=== PATIENT | female | born 1970 | race Caucasian/White ===

== ENCOUNTER 2017-09-04 07:28 | Emergency (ER) | payer SELFPAY ==
[2017-09-04] MEDS ORDERED: Ibuprofen 800 MG TAB ONE (08:00)
[2017-09-04] MEDS ORDERED: cefTRIAXone\\ROCEPHIN 1 GM VIAL ONE (08:01)
[2017-09-04] MEDS ORDERED: Lidocaine 1% MPF 2 ML VIAL ONE (08:01)
== END 2017-09-04 08:34 | disposition home or self-care (01) ==
LOC: SCSER 07:28
DX: K02.9 Dental caries, unspecified (principal); K12.2 Cellulitis and abscess of mouth; I10 Essential (primary) hypertension; E55.9 Vitamin D deficiency, unspecified; F41.9 Anxiety disorder, unspecified; F90.9 Attention-deficit hyperactivity disorder, unspecified type; F17.210 Nicotine dependence, cigarettes, uncomplicated; M54.9 Dorsalgia, unspecified; G89.29 Other chronic pain; Z79.899 Other long term (current) drug therapy
CPT/HCPCS: 96372; J0696

== ENCOUNTER 2018-05-26 03:07 | Emergency (ER) | payer SELFPAY ==
[2018-05-26 04:14] LABS: #Eosinphils 0.2 thou/uL (0.0-0.7); #Lymphocytes 2.3 thou/uL (1.20-3.40); #Monocytes 0.6 thou/uL (0.11-0.59); #Neutrophils 7.3 thou/uL (1.40-6.50); %Basophils 0.4 % (0.0-1.0); %Eosinophils 1.7 % (0.0-10.0); %Lymphocytes 22.4 % (21.0-51.0); %Monocytes 5.7 % (0.0-10.0); %Neutrophils 69.7 % (42.0-75.0); Hemoglobin 14.1 g/dL (12.0-16.0); Mean Corpuscular HGB CONC 31.9 g/dL (32.0-36.0); Mean Corpuscular Hemoglobin 30.8 pg (27.0-31.0); Mean Corpuscular Volume 96.5 fL (78.0-98.0); Mean Platelet Volume 7.3 fL (7.4-10.4); Platelet Count 290 thou/uL (130-400); RBC Distribution Width 12.3 % (11.5-14.5); Red Blood Cell (RBC) Count 4.57 mill/uL (4.20-5.40); White Blood Cell (WBC) Count 10.4 thou/uL (4.8-10.8)
[2018-05-26 04:34] LABS: ALT (SGPT) 15 U/L (8-55); AST (SGOT) 15 U/L (5-34); Albumin 3.9 g/dL (3.5-5.0); Alkaline Phosphatase 54 U/L (40-150); Anion Gap 15 mmol/L (10-20); BUN (Urea Nitrogen) 15 mg/dL (7.0-18.7); Bilirubin, Total 0.2 mg/dL (0.2-1.2); Calc. Creatinine Clearance 0 mL/min (70-130); Calcium 9.3 mg/dL (7.8-10.44); Carbon Dioxide 26 mmol/L (22-29); Chloride 101 mmol/L (98-107); Estimated GFR-MDRD 83; Globulin 3.2 g/dL (2.4-3.5); Glucose 106 mg/dL (70-105); Lipase 22 U/L (8-78); Protein, Total 7.1 g/dL (6.0-8.3); Sodium 138 mmol/L (136-145)
[2018-05-26] MEDS ORDERED: Metoclopramide HCl 10 MG/2 ML VIAL ONE (05:50)
[2018-05-26] MEDS ORDERED: diphenhydrAMINE 50 MG/ML VIAL ONE (05:50)
[2018-05-26 06:25] LABS: Bilirubin Negative (Negative); Blood, Urine Negative (Negative); Clarity CLEAR (Clear); Glucose, Urine (Dipstick) Negative (Negative); Leukocyte Negative (Negative); Nitrite Negative (Negative); Protein, Urine (Dipstick) Negative (Neg-Trace); Specific Gravity, Urine 1.023 (1.002-1.036); Urobilinogen 0.2 mg/dL (0.2-1.0); pH, Urine 5.5 (5.0-9.0)
--- NOTE | 2018-05-26 08:11 | CT ---
CT HEAD NONCONTRAST: INDICATIONS: Headache. FINDINGS: There is a normal-sized ventricular system. No acute intracranial hemorrhage, mass effect, or midlin e shift. There is a large, partially visualized, rounded density in the right maxillary sinus, likel y a retention cyst. There are additional sites of mucosal thickening and retention cyst formation on the imaged paranasal sinuses. IMPRESSION: 1. No acute intracranial hemorrhage or mass effect. 2. Prominent paranasal sinus inflammatory disease. Outpatient follow-up ENT consultation would prov e useful, as findings may contribute to the patient's symptoms of headaches. POS: JAY
== END 2018-05-26 07:26 | disposition home or self-care (01) ==
LOC: ERS 03:07
DX: R11.2 Nausea with vomiting, unspecified (principal); R51 Headache; I10 Essential (primary) hypertension; F41.9 Anxiety disorder, unspecified; F90.9 Attention-deficit hyperactivity disorder, unspecified type; F17.210 Nicotine dependence, cigarettes, uncomplicated; Z79.899 Other long term (current) drug therapy
CPT/HCPCS: 36415; 70450; 80053; 81003; 83690; 85025; 87804; 93005; 96365; 96375; J1200; J2765

== ENCOUNTER 2023-08-16 10:28 | Emergency (ER) | payer OTHER ==
[2023-08-16 11:33] LABS: #Basophils 0.03 10x3/uL (0.0-0.2); %Basophils 0.5 % (0.0-1.0); %Eosinophils 3.4 % (0.0-10.0); %Lymphocytes 24.4 % (21.0-51.0); %Neutrophils 63.1 % (42.0-75.0); Hematocrit 41.9 % (36.0-47.0); Hemoglobin 13.8 g/dL (12.0-16.0); Mean Corpuscular HGB CONC 32.9 g/dL (32.0-36.0); Mean Corpuscular Hemoglobin 29.6 pg (27.0-31.0); Mean Corpuscular Volume 89.7 fL (78.0-98.0); Mean Platelet Volume 9.4 fL (7.4-10.4); Platelet Count 320 10x3/uL (130-400); Red Blood Cell (RBC) Count 4.67 mill/uL (4.20-5.40)
[2023-08-16 11:51] LABS: ALT (SGPT) 20 U/L (8-55); AST (SGOT) 19 U/L (5-34); Albumin 3.4 g/dL (3.5-5.0); Alkaline Phosphatase 66 U/L (40-110); Anion Gap 13 mmol/L (10-20); BUN (Urea Nitrogen) 9 mg/dL (9.8-20.1); Bilirubin, Total 0.4 mg/dL (0.2-1.2); Calc. Creatinine Clearance 0 mL/min (70-130); Calcium 9.5 mg/dL (7.8-10.44); Carbon Dioxide 31 mmol/L (22-29); Chloride 99 mmol/L (98-107); Estimated GFR 104; Globulin 3.6 g/dL (2.4-3.5); Glucose 113 mg/dL (70-105); Potassium 3.5 mmol/L (3.5-5.1); Sodium 139 mmol/L (136-145)
[2023-08-16 11:54] LABS: BHCG - Serum Negative (NEGATIVE); Pregs Control Background? CLEAR/WHITE (CLR/WHITE); Pregs Control Bar Appear? YES (CONTROL BAR)
[2023-08-16] MEDS ORDERED: Iopamidol-370 76% 500 ML MDV (1 ML CHARGE) ONE (12:36)
== END 2023-08-16 12:23 | disposition home or self-care (01) ==
LOC: ERS 10:28
DX: K04.7 Periapical abscess without sinus (principal); H92.01 Otalgia, right ear; F17.210 Nicotine dependence, cigarettes, uncomplicated; I10 Essential (primary) hypertension
CPT/HCPCS: 70491; 80053; 84703; 85025; Q9967